=== PATIENT | female | born 1980 | race Caucasian/White ===

== ENCOUNTER 2021-07-06 17:07 | Emergency (ER) | payer OTHER ==
[~2021-07-06] VITALS: Ht 157.5 cm; Wt 72.6 kg
[2021-07-06 17:20] VITALS: BP 164/104
[2021-07-06] MEDS ORDERED: HYDROCODON-ACE1 EAC7 PO (17:36)
== END 2021-07-06 17:59 | disposition home or self-care (01) ==
LOC: M.ERS 17:07
DX: S93.401A Sprain of unspecified ligament of right ankle, initial encounter (principal); Z98.890 Other specified postprocedural states; W01.0XXA Fall on same level from slipping, tripping and stumbling without subsequent striking against object, initial encounter; Y93.89 Activity, other specified; Y92.89 Other specified places as the place of occurrence of the external cause; Y99.8 Other external cause status